=== PATIENT | female | born 1980 | race Caucasian/White ===

== ENCOUNTER 2022-08-15 10:11 | Outpatient (CLI) | payer OTHER, SELFPAY | END 2022-08-15 10:12 | disposition home or self-care (01) | PROVIDERS: PCP Physician Assistant Medical; Visit Provider Physician Assistant Medical | DX: I10 Essential (primary) hypertension (principal); N92.6 Irregular menstruation, unspecified; F41.9 Anxiety disorder, unspecified | CPT/HCPCS: 82088; 84244; 84443 ==

== ENCOUNTER 2022-09-27 13:16 | Outpatient (CLI) | payer OTHER, SELFPAY | END 2022-09-27 13:17 | disposition home or self-care (01) | PROVIDERS: PCP Physician Assistant Medical; Visit Provider Physician Assistant Medical | DX: Z00.00 Encounter for general adult medical examination without abnormal findings (principal); D64.9 Anemia, unspecified; I10 Essential (primary) hypertension; F41.9 Anxiety disorder, unspecified | CPT/HCPCS: 82607; 82746; 83516; 83540; 83550 ==

== ENCOUNTER 2022-10-09 16:47 | Outpatient (CLI) | payer OTHER, SELFPAY ==
--- NOTE | 2022-10-09 17:00 | CRLHL7_ITS ---
For Patients: As a result of the Century Cures Act, medical imaging exams and procedure reports are released immediately into your electronic medical record. You may view this report before your referring provider. If you have questions, please contact your health care provider. INDICATION: 42 year-old female. Menorrhagia. History of polyps. TECHNIQUE: Transabdominal and transvaginal pelvic ultrasound. FINDINGS: The uterus measures 7.8 x 3.8 x 4 cm. The endometrial stripe measures 8.4 mm transvaginally, normal in a premenopausal female. No free pelvic fluid. The right ovary measures 2.2 x 1.5 x 2 cm. The left ovary measures 3.5 x 2.0 x 2.5 cm. Blood flow is identified in the ovaries. Within the left ovary there is a complex presumed hemorrhagic cyst in evolution measuring 2.1 x 1.8 x 1.9 cm. Ultrasound followup recommended within 6-8 weeks or 1-2 menstrual cycles to assess for resolution. IMPRESSION: 1. Complex left ovarian cyst measuring up to 2.1 cm. Follow-up ultrasound recommended in 6-8 weeks or 1-2 menstrual cycles. 2. The examination is otherwise negative. Dictated by Vitaliy Leonard MD @ 10/09/2022 7:01:29 PM (Electronically Signed)
== END 2022-10-09 16:48 | disposition home or self-care (01) ==
LOC: US 16:47
PROVIDERS: PCP Physician Assistant Medical; Visit Provider Registered Nurse
DX: N92.0 Excessive and frequent menstruation with regular cycle (principal); N83.202 Unspecified ovarian cyst, left side
CPT/HCPCS: 76830; 76856

== ENCOUNTER 2022-12-13 13:52 | Outpatient (CLI) | payer OTHER, SELFPAY ==
--- NOTE | 2022-12-13 14:00 | CRLHL7_ITS ---
For Patients: As a result of the Century Cures Act, medical imaging exams and procedure reports are released immediately into your electronic medical record. You may view this report before your referring provider. If you have questions, please contact your health care provider. CLINICAL HISTORY: Follow-up left ovarian cyst Comparison 10/09/2022 TECHNIQUE: 2D ferrera scale and color Doppler images were acquired of the pelvis using a transvaginal approach. FINDINGS: On transvaginal imaging, the myometrium has a normal uniform echotexture. The endometrial lining measures 8 mm in thickness. The left ovary measures 2.6 x 1.1 x 1.6 cm in size and the right ovary measures 2.7 x 1.0 x 1.7 cm. The ovaries demonstrate normal arterial and venous blood flow on color Doppler analysis. There are no suspicious fluid collections within the cul-de-sac. IMPRESSION: Resolution of the previously noted left ovarian cyst. Dictated by Diego Sadler MD @ 12/13/2022 3:05:18 PM (Electronically Signed)
== END 2022-12-13 13:53 | disposition home or self-care (01) ==
LOC: US 13:52
PROVIDERS: PCP Physician Assistant Medical; Visit Provider Registered Nurse
DX: N83.202 Unspecified ovarian cyst, left side (principal)
CPT/HCPCS: 76830

== ENCOUNTER 2023-03-06 15:16 | Outpatient (CLI) | payer OTHER, SELFPAY ==
--- NOTE | 2023-03-06 15:00 | CRLHL7_ITS ---
For Patients: As a result of the Century Cures Act, medical imaging exams and procedure reports are released immediately into your electronic medical record. You may view this report before your referring provider. If you have questions, please contact your health care provider. BILATERAL SCREENING MAMMOGRAM WITH COMPUTER-AIDED DETECTION AND TOMOSYNTHESIS TECHNIQUE: CC and MLO views were obtained. These mammographic images have been obtained using full-field digital technique. These mammographic images were interpreted with the benefit of computer-aided detection. Breast Tomosynthesis was used in this interpretation. COMPARISON FILM: Baseline. FINDINGS: The breasts are heterogeneously dense, which may obscure small masses IMPRESSION: There is no radiographic evidence for malignancy. ASSESSMENT: BI-RADS Category 1: Negative RECOMMENDATION: Routine screening mammogram in 1 year. A lay language report of this examination will be provided to the patient. Diego Sadler M.D. Diagnostic Radiologist [email or web address] Transcribed: 2:14 [email or web address] madden/Dictated by: Diego Sadler MD @ 03/07/2023 8:00:00 AM (Electronically Signed)
== END 2023-03-06 15:17 | disposition home or self-care (01) ==
PROVIDERS: PCP Physician Assistant Medical; Visit Provider Physician Assistant Medical
DX: Z12.31 Encounter for screening mammogram for malignant neoplasm of breast (principal); R92.2 Inconclusive mammogram
CPT/HCPCS: 77063; 77067

== ENCOUNTER 2023-07-08 15:52 | Outpatient (CLI) | payer OTHER, SELFPAY | END 2023-07-08 15:53 | disposition home or self-care (01) | PROVIDERS: PCP Physician Assistant Medical; Visit Provider Physician Assistant Medical | DX: E61.1 Iron deficiency (principal); D64.9 Anemia, unspecified; I10 Essential (primary) hypertension; E53.8 Deficiency of other specified B group vitamins; F41.9 Anxiety disorder, unspecified | CPT/HCPCS: 82088; 82306; 82607; 83540; 83550; 84244; 84439; 84443; 86376 ==

== ENCOUNTER 2024-02-06 10:12 | Outpatient (CLI) | payer BC, SELFPAY | END 2024-02-06 10:13 | disposition home or self-care (01) | LOC: NFLDREF 02-07 08:40 | PROVIDERS: PCP Physician Assistant Medical; Referring Provider Physician Assistant Medical; Visit Provider Physician Assistant Medical | DX: E61.1 Iron deficiency (principal); E03.9 Hypothyroidism, unspecified; D64.9 Anemia, unspecified | CPT/HCPCS: 80053; 82607; 83540; 83550; 84443 ==

== ENCOUNTER 2024-02-13 17:03 | Outpatient (CLI) | payer BC, SELFPAY | END 2024-02-13 17:04 | disposition home or self-care (01) | LOC: LKVREF 17:04 | PROVIDERS: PCP Physician Assistant Medical; Visit Provider Emergency Medicine | DX: E83.19 Other disorders of iron metabolism (principal) | CPT/HCPCS: 82728 ==

== ENCOUNTER 2024-04-01 15:49 | Outpatient (CLI) | payer BC, SELFPAY | END 2024-04-01 15:50 | disposition home or self-care (01) | PROVIDERS: PCP Physician Assistant Medical; Visit Provider Emergency Medicine | DX: Z00.00 Encounter for general adult medical examination without abnormal findings (principal); E03.9 Hypothyroidism, unspecified; R74.01 Elevation of levels of liver transaminase levels; E61.1 Iron deficiency; E53.8 Deficiency of other specified B group vitamins; D64.9 Anemia, unspecified; I10 Essential (primary) hypertension | CPT/HCPCS: 80076; 82728; 83540; 83550 ==

== ENCOUNTER 2024-04-13 15:29 | Outpatient (CLI) | payer BC, SELFPAY ==
--- NOTE | 2024-04-13 15:45 | CRLHL7_ITS ---
For Patients: As a result of the Century Cures Act, medical imaging exams and procedure reports are released immediately into your electronic medical record. You may view this report before your referring provider. If you have questions, please contact your health care provider. CLINICAL HISTORY: Pelvic and perineal pain TECHNIQUE: 2D ferrera scale ultrasound. In addition color Doppler and spectral Doppler analysis was performed of the pelvis using a transvaginal and transabdominal approach. FINDINGS: On transvaginal imaging, the myometrium has a mildly heterogeneous echotexture. No uterine fibroid. The uterus measures 6.8 x 3.0 x 4.5 cm. The endometrial lining appears normal and measures 5 mm in thickness. The right ovary measures 2.9 x 1.8 x 2.2 cm in size and the right ovary measures 2.3 x 1.1 x 1.6 cm. The ovaries demonstrate normal arterial and venous blood flow on color Doppler and spectral Doppler analysis. There are no suspicious fluid collections within the cul-de-sac. Simple cyst right ovary measures 1.2 cm. IMPRESSION: Heterogeneous uterine echotexture without leiomyoma. Ovaries unremarkable with incidental simple cyst right ovary. No torsion or adnexal mass. No excess pelvic free fluid. Dictated by Diego Sadler MD @ 04/14/2024 10:00:03 AM (Electronically Signed)
== END 2024-04-13 15:30 | disposition home or self-care (01) ==
LOC: US 15:29
PROVIDERS: PCP Physician Assistant Medical; Visit Provider Emergency Medicine
DX: R10.2 Pelvic and perineal pain (principal); R93.89 Abnormal findings on diagnostic imaging of other specified body structures; N83.201 Unspecified ovarian cyst, right side
CPT/HCPCS: 76830; 76856; 93976

== ENCOUNTER 2024-04-14 09:17 | Outpatient (CLI) | payer BC, SELFPAY | END 2024-04-14 09:18 | disposition home or self-care (01) | LOC: LKVREF 09:18 | PROVIDERS: PCP Physician Assistant Medical; Visit Provider Emergency Medicine | DX: R74.01 Elevation of levels of liver transaminase levels (principal) | CPT/HCPCS: 80076 ==

== ENCOUNTER 2024-04-20 08:06 | Outpatient (CLI) | payer BC, SELFPAY ==
--- NOTE | 2024-04-20 08:15 | CRLHL7_ITS ---
For Patients: As a result of the Century Cures Act, medical imaging exams and procedure reports are released immediately into your electronic medical record. You may view this report before your referring provider. If you have questions, please contact your health care provider. INDICATION: Elevated liver transaminases levels. TECHNIQUE: Right upper quadrant ultrasound. COMPARISON: None. FINDINGS: Slight increased echotexture of the liver could reflect mild hepatic fatty infiltration. Please correlate clinically. No intrahepatic mass. No biliary ductal dilatation. Normal gallbladder without stones or sludge. No gallbladder wall thickening or pericholecystic fluid. No sonographic Parson`s sign. The gallbladder wall measures 1 mm and the common bile duct 3 mm. No hydronephrosis of the right kidney which measures 10.2 x 3.3 x 5.1 cm. The right renal cortex measures 1.3 cm. The proximal abdominal aorta is normal measuring 2.2 cm in AP dimension. The proximal IVC is grossly unremarkable. The pancreas is not well seen. IMPRESSION: 1. Normal gallbladder. 2. Normal-appearing right kidney. 3. Questionable mildly echogenic liver suggesting fatty infiltration. Dictated by Vitaliy Leonard MD @ 04/20/2024 11:26:54 AM (Electronically Signed)
== END 2024-04-20 08:07 | disposition home or self-care (01) ==
LOC: US 08:07
PROVIDERS: PCP Physician Assistant Medical; Visit Provider Emergency Medicine
DX: R74.01 Elevation of levels of liver transaminase levels (principal)
CPT/HCPCS: 76705

== ENCOUNTER 2024-04-24 16:24 | Outpatient (CLI) | payer BC, SELFPAY | END 2024-04-24 16:25 | disposition home or self-care (01) | LOC: NFLDREF 16:26 | PROVIDERS: PCP Physician Assistant Medical; Visit Provider Obstetrics & Gynecology | DX: N93.9 Abnormal uterine and vaginal bleeding, unspecified (principal); Z97.5 Presence of (intrauterine) contraceptive device | CPT/HCPCS: 80074; 85610; 85730 ==

== ENCOUNTER 2024-04-27 14:14 | Outpatient (CLI) | payer BC, SELFPAY ==
[2024-04-28 08:06] LABS: Lab Add On Test New Spec Needed
== END 2024-04-27 14:15 | disposition home or self-care (01) ==
LOC: NFLDREF 14:16
PROVIDERS: PCP Physician Assistant Medical; Visit Provider Emergency Medicine
DX: R74.01 Elevation of levels of liver transaminase levels (principal)
CPT/HCPCS: 80076

== ENCOUNTER 2024-06-22 12:50 | Outpatient (CLI) | payer BC, SELFPAY ==
--- NOTE | 2024-06-22 13:00 | CRLHL7_ITS ---
For Patients: As a result of the Century Cures Act, medical imaging exams and procedure reports are released immediately into your electronic medical record. You may view this report before your referring provider. If you have questions, please contact your health care provider. BILATERAL SCREENING MAMMOGRAM WITH COMPUTER-AIDED DETECTION AND TOMOSYNTHESIS TECHNIQUE: CC and MLO views were obtained. These mammographic images have been obtained using full-field digital technique. These mammographic images were interpreted with the benefit of computer-aided detection. Breast Tomosynthesis was used in this interpretation. COMPARISON FILM: 03/06/23. FINDINGS: The breasts are heterogeneously dense, which may obscure small masses. IMPRESSION: There is no radiographic evidence for malignancy. ASSESSMENT: BI-RADS Category 1: Negative RECOMMENDATION: Routine screening mammogram in 1 year. A lay language report of this examination will be provided to the patient. Diego Sadler M.D. Diagnostic Radiologist [email or web address] SP/Dictated by: Diego Sadler MD @ 06/23/2024 9:21:00 AM (Electronically Signed)
== END 2024-06-22 12:51 | disposition home or self-care (01) ==
LOC: MAMMO 12:51
PROVIDERS: PCP Physician Assistant Medical; Visit Provider Emergency Medicine
DX: Z12.31 Encounter for screening mammogram for malignant neoplasm of breast (principal); R92.333 Mammographic heterogeneous density, bilateral breasts
CPT/HCPCS: 77063; 77067

== ENCOUNTER 2024-07-08 13:17 | Outpatient (CLI) | payer BC, SELFPAY | END 2024-07-08 13:18 | disposition home or self-care (01) | PROVIDERS: PCP Physician Assistant Medical; Visit Provider Physician Assistant Medical | DX: R74.01 Elevation of levels of liver transaminase levels (principal); R60.9 Edema, unspecified; D64.9 Anemia, unspecified; F10.90 Alcohol use, unspecified, uncomplicated; F41.9 Anxiety disorder, unspecified; I10 Essential (primary) hypertension | CPT/HCPCS: 80053; 82977; 83690; 83880 ==

== ENCOUNTER 2024-07-08 14:58 | Emergency (ER) | payer BC, SELFPAY ==
[2024-07-08] VITALS (34 sets, daily range): BP systolic 115–146; BP diastolic 58–86; PULSE 86–120; RESP 18; TEMP 37.2; O2SAT 94–100; BMI 22.7
--- OUTSIDE RECORDS SUMMARY | 2024-07-08 15:01 | XMS_ITS | Clinical Summary ---
Author Organization [facility] Address [place], [place] [address] Care Team Providers Care Engine Oiler Name Role Phone Mayi Dickson MD Primary Care Provider [phone] Allergies Active Allergy Reactions Criticality Noted Date Comments Amoxicillin Rash 05/08/2016 Sulfa (Sulfonamide Antibiotics) Rash 04/18 Encounters Date Type Department Care Team Description 04/27/2024 Lab Requisition [facility] [phone] Rosaura Guevara MD from Last 3 Months Social History Tobacco Use Types Packs/Day Years Used Date Smoking Tobacco: Never Alcohol Use Standard Drinks/Week Comments Yes 2 (1 standard drink = 0.6 oz pur e alcohol) Comments No Sex and Gender Information Value Date Recorded Sex Assigned at Not on file Legal Sex Female 5:25 PM CDT Gender Identity Not on file Sexual Orientation Not on file Obstetrics History Last Filed Vital Signs Vital Sign Reading Time Taken Comments Blood Pressure 151/93 05/08/2016 1:16 PM RESTORATIVE REHAB AIDE Pulse 62 05/08/2016 1:17 PM RESTORATIVE REHAB AIDE Temperature 36.4 C (97.6 F) 05/08/2016 11:00 AM RESTORATIVE REHAB AIDE Respiratory Rate 16 05/08/2016 1:17 PM RESTORATIVE REHAB AIDE Oxygen Saturation 98% 05/08/2016 1:17 PM RESTORATIVE REHAB AIDE Inhaled Oxygen Concentration - - Weight 65.8 kg (145 lb) 05/08/2016 11:00 AM RESTORATIVE REHAB AIDE Height 167.6 cm (5' 6) 05/08/2016 11:00 AM RESTORATIVE REHAB AIDE Body Mass Index 23.4 05/08/2016 11:00 AM RESTORATIVE REHAB AIDE Plan of Treatment Health Maintenance Due Date Last Done Comments Tdap 1992 Depression screening for age 12+ 1993 HIV for age 15-65 1996 BMI (ht and wt on same day) for age 18+ 09/13/1999 Hepatitis C screening for age 18-79 09/13/1999 Tetanus booster 2001 COVID-19 vaccine series ( season) 2024 Influenza for age 9-49 02/16/2024 Pap test for age 21-65 09/27/2025 , 09/27/2022, 02/04/2015, Additional history exists Pneumococcal series for age 6-49 Aged Out No longer eligible based on patient's age to complete this topic Procedures Procedure Name Priority Date/Time Associated Diagnosis Comments LAB TRACKING EVENT Routine 04/24/2024 4: 10 PM RESTORATIVE REHAB AIDE PATH TISSUE EXAM Routine 04/24/2024 4:10 PM RESTORATIVE REHAB AIDE HPV HIGH RISK Routine 09/27/2022 1:45 PM CDT from Last 3 Months or Most Recently Relevant to Health Maintenance Results * LAB TRACKING EVENT (04/24/2024 4:10 PM RESTORATIVE REHAB AIDE) Other (Other) Client Collect / Unknown 04/24/2024 4:10 PM RESTORATIVE REHAB AIDE 04/27/2024 1:47 PM RESTORATIVE REHAB AIDE us Rosaura Guevara MD LAB BILL ONLY Final Re sult [facility] [address] [place] [address], * PATH TISSUE EXAM (04/24/2024 4:10 PM RESTORATIVE REHAB AIDE) Case Report Pathology Report Case: [id number] Authorizing Provider: Rosaura Guevara MD Collected: 04/24/2024 1610 Ordering Location: [facility] Received: 04/27/2024 1504 Pathologist: Carleen Nickerson MD Specimen: Endometrial Biopsy 04/29/2024 10:52 AM RESTORATIVE REHAB AIDE [facility] Final Diagnosis A) ENDOMETRIUM, BIOPSY: 1. Proliferative endometrium 2. Negative for chronic endometritis 3. Negative for hyperplasia, atypia, and malignancy 04/29/2024 10:52 AM RESTORATIVE REHAB AIDE [facility] Clinical Information 43-year-old female with abnormal uterine bleeding. 04/29/2024 10:52 AM RESTORATIVE REHAB AIDE [facility] Gross Description A) Received in formalin, labeled with the patient's name and date of , is a 2.3 x 1.5 x 0.4 cm aggregate of pink-varela mucosa admixed with clotted blood and mucous. The specimen is entirely submitted in one cassette. SJM 04/27/2024 04/29/2024 10:52 AM RESTORATIVE REHAB AIDE [facility] Microscopic Description The final diagnosis is based on microscopic examination of appropriate sections of all specimens. 04/29/2024 10:52 AM RESTORATIVE REHAB AIDE [facility] Additional Information Interpreted at [facility] - [address] [place] [address] [address] [address] 04/29/2024 10:52 AM RESTORATIVE REHAB AIDE [facility] Other (Endometrial Biopsy) 04/24/2024 4:10 PM RESTORATIVE REHAB AIDE 04/27/2024 3:04 PM RESTORATIVE REHAB AIDE Rosaura Guevara MD PATHOLOGY/CYTOLOGY Final Result [facility] [address] [place] [address], * HPV HIGH RISK (09/27/2022 1:45 PM CDT) TYPE 16 Negative Negative 10/03/2022 5:24 AM CDT [facility] TYPE 18 Negative Negative 10/03/2022 5:24 AM CDT [facility] OTHER HIGH RISK TYPES Negative Negative 10/03/2022 5:24 AM CDT [facility] Other (Cervical) 09/27/2022 1:45 PM CDT 10/01/2022 3:37 PM CDT Narrative [facility] - 10/03/2022 5:24 AM CDT HPV types 16, 18, 31, 33, 35, 39, 45, 51, 52, 56, 58, 59, 66 and 68 DNA were undetectable or below the pre-set threshold. Methodology: Ashwin Dwain 4800 HPV Test us Vanessa Foster PA-C MICROBIOLOGY Final Result [facility] [address] [place] [address], [place] from Last 3 Months or Most Recently Relevant to Health Maintenance Care Teams Engine Oiler Relationship Specialty Start Date End Date Randolph, Mayi Muñoz MD [address] [place] [id number] PCP - General Obstetrics and Gynecology 05/08/16
--- OUTSIDE RECORDS SUMMARY | 2024-07-08 15:01 | XMS_ITS | Referral Summary ---
Author Organization [facility] [facility] Address [address] [place] [address] Care Team Providers Care Gate Guard Name Role Phone [facility]- Primary Care Provider Allergies Active Allergy Reactions Criticality Noted Date Comments Amoxicillin 07/19/2019 Sulfa Antibiotics 07/19/2019 Social History Tobacco Use Types Packs/Day Years Used Date Smoking Tobacco: Never Assessed Adolescent Education Answer Date Record ed Getting School Help Needed Not on file 03/23 Comments Unknown Sex and Gender Information Value Date Recorded Sex Assigned at Not on file Legal Sex Female 3:04 AM TOMATO GRADER Gender Identity Not on file Sexual Orientation Not on file Last Filed Vital Signs Vital Sign Reading Time Taken Comments Blood Pressure 153/110 07/19/2019 11:38 AM TOMATO GRADER Pulse 116 07/19/2019 11:38 AM TOMATO GRADER Temperature 36.9 C (98.4 F) 07/19/2019 11:38 AM TOMATO GRADER Respiratory Rate 18 07/19/2019 11:38 AM TOMATO GRADER Oxygen Saturation 100% 07/19/2019 11:38 AM TOMATO GRADER Inhaled Oxygen Concentration - - Weight 63.7 kg (140 lb 6.9 oz) 07/19/2019 11:41 AM TOMATO GRADER Height 165.1 cm (5' 5) 07/19/2019 11:38 AM TOMATO GRADER Body Mass Index 23.37 07/19/2019 11:38 AM TOMATO GRADER Plan of Treatment Not on file Care Teams Gate Guard Relationship Specialty Start Date End Date [facility]- [address] [place] [address] [facility] - General 07/19/19
--- OUTSIDE RECORDS SUMMARY | 2024-07-08 15:01 | XMS_ITS | Clinical Summary ---
Author Organization [facility] Address [address] [place] [address] Care Team Providers Care Machine Operator Picker Name Role Phone [facility]- Primary Care Provider Allergies Active Allergy Reactions Criticality Noted Date Comments Amoxicillin 07/19/2019 Sulfa Antibiotics 07/19/2019 Social History Tobacco Use Types Packs/Day Years Used Date Smoking Tobacco: Never Assessed Adolescent Education Answer Date Record ed Getting School Help Needed Not on file 03/23 Comments Unknown Sex and Gender Information Value Date Recorded Sex Assigned at Not on file Legal Sex Female 3:04 AM PAD CUTTER Gender Identity Not on file Sexual Orientation Not on file Last Filed Vital Signs Vital Sign Reading Time Taken Comments Blood Pressure 153/110 07/19/2019 11:38 AM PAD CUTTER Pulse 116 07/19/2019 11:38 AM PAD CUTTER Temperature 36.9 C (98.4 F) 07/19/2019 11:38 AM PAD CUTTER Respiratory Rate 18 07/19/2019 11:38 AM PAD CUTTER Oxygen Saturation 100% 07/19/2019 11:38 AM PAD CUTTER Inhaled Oxygen Concentration - - Weight 63.7 kg (140 lb 6.9 oz) 07/19/2019 11:41 AM PAD CUTTER Height 165.1 cm (5' 5) 07/19/2019 11:38 AM PAD CUTTER Body Mass Index 23.37 07/19/2019 11:38 AM PAD CUTTER Plan of Treatment Not on file Care Teams Machine Operator Picker Relationship Specialty Start Date End Date [facility]- [address] [place] [address] [facility] - General 07/19/19
--- NOTE | 2024-07-08 15:28 | ED.GENADULT ---
HPI - General Adult General Time Seen by Provider: 15:15 Date Seen: 07/08/24 Chief complaint: Lower Extremity Swelling Stated complaint: Sent y UC-bloodwork needed Time Seen by Provider: 07/08/24 15:02 Source: patient, RN notes reviewed and other (spoke with Vanessa Foster from clinic) Mode of arrival: ambulatory Limitations: no limitations History of Present Illness HPI narrative: This 43-year-old female is referred to us from [facility] where she was seeing Vanessa Genijacintoalda for reported edema. She had been seen on Saturday for upper respiratory infection. Vanessa thought maybe her eyes looked a little jaundice and made a mental note to talk to her in the future about it. Patient came back today and definitely appreciated the jaundice. Lab told her that her serum spun out green and that she could be septic and needed further evaluation. Her platelets were good at 208,000. Hemoglobin was at 9.8. Patient is having no abdominal pain but does feel bloated. She drinks maybe a couple beers or couple glasses of wine tonight and maybe more on weekends. She is noted to have had normal coags, normal hepatitis panel in April of 2024. Her white blood count was normal at clinic today at 5140. Her hemoglobin on May 11 was 12.7. She does endorse anxiety, does use some Ativan, took 0.5 mg this morning. She has tried other medicines, has been working on her anxiety and really has not found a lot to be helpful. She has no chest pain, no shortness of breath, no respiratory symptoms. Related Data Home Medications ?Medication ?Instructions ?Recorded ?Confirmed Fish oil PO 07/09/22 07/08/24 Multivitamins PO 07/09/22 07/08/24 acyclovir 5 % topical ointment 1 topical .5 Times Daily 07/09/22 07/08/24 Previous Rx's ?Medication ?Instructions ?Recorded ketoconazole 2 % topical cream 1 applic topical BID #60 grams 04/08/23 losartan 25 mg tablet 25 mg PO QDAY #90 tabs 04/09/24 norethindrone (contraceptive) 0.35 0.35 mg PO QDAY #84 tabs 05/06/24 mg tablet (Jessy) cholecalciferol (vitamin D3) 50 50 mcg PO QDAY #90 caps 05/11/24 mcg (2,000 unit) capsule lorazepam 0.5 mg tablet 0.5 mg PO QDAY PRN anxiety #30 tabs 07/10/24 Allergies Allergy/AdvReac Type Severity Reaction Status Date / Time penicillin V Allergy Mild Rash Verified 07/08/24 15:12 amoxicillin Allergy Unknown Unknown Verified 07/08/24 15:12 sulfacetamide Allergy Eye drops Verified 07/08/24 15:12 as child. Eyes became swollen shut. Review of Systems Status of ROS: Reports: 6 or more systems reviewed and unremarkable except as noted in History and below PFSH [facility] Medical History Pelvic pain ?R10.2 - Pelvic and perineal pain (ICD-10) Iron overload ?E83.19 - Other disorders of iron metabolism (ICD-10) Anxiety and depression ?F41.9 - Anxiety disorder, unspecified (ICD-10) ?F32.A - Depression, unspecified (ICD-10) Elevated transaminase level ?R74.01 - Elevation of levels of liver transaminase levels (ICD-10) Gestational HTN ?O13.9 - Gestational [-induced] hypertension without significant proteinuria, unspecified trimester (ICD-10) 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) ?Z86.19 - Personal history of other infectious and parasitic diseases (ICD-10) Delivery normal (10/08/12) ?O80 - Encounter for full-term uncomplicated delivery (ICD-10) Anxiety disorder ?F41.9 - Anxiety disorder, unspecified (ICD-10) Surgical History History of vaginal delivery Status post surgical manipulation of ankle joint ?Z98.890 - Other specified postprocedural states (ICD-10) History of colposcopy ?Z98.890 - Other specified postprocedural states (ICD-10) Family History Paternal Grandmother Breast cancer, Onset Age: 60 Aunt Breast cancer Family/Other Cancer Mother High blood pressure Father High blood pressure Social History Narrative: . ( 3 sons- 11 yo, 10 yo, 7 yo ) Does not use illicit drugs Nonsmoker Occasional alcohol consumption Smoking Status: Never smoker How often do you have a drink containing alcohol: 4 or more times a week How many standard drinks containing alcohol do you have on a typical day: 10 or more How often do you have six or more drinks on one occasion: Weekly AUDIT-C Alcohol total score: 11 Non-prescribed substance use: denies use service: No Exam Const: Vital Signs, click to edit/add: Vital Signs - 24 hr 07/10/24 10:27 07/10/24 13:12 Pulse Rate [Right Pulse Oximeter] 88 105 H Respiratory Rate 16 20 Blood Pressure [Ri ght Upper Arm] 133/86 129/87 Pulse Oximetry 99 97 Oxygen Delivery Me thod Room Air Room Air Gilda is a 43-year-old female initially seen in triage, she is alert, interactive, no apparent distress. Breathing easy on room air cause pH is normal. Definite scleral icterus but conjugate gaze, pupils equal and round. Symmetrical facial function, skin does look jaundice. Note no vascular changes on her face. Lungs are clear, good air entry, no wheezing crackles, no tachypnea. CV regular rate and rhythm, no murmur, normal S1-S2, no S3-S4. She is sitting in the chair but abdomen is soft, nontender, do not appreciate any significant distension but admittedly this is not best positioning. She has no significant lower extremity edema that I am seen but she does pull down her sock and shows some bruising along the anterolateral aspect of the ankle, seems to just be within the skin. She states she has been getting bruising. There may be trace pretibial edema but nothing concerning. Documenting provider has reviewed patient's vital signs: yes Course Course ED Course: Patient understands that we will be drawing blood in triage, I will be ordering an abdominal ultrasound to see if she has had any progression of liver disease, see if there is ascites. I doubt that there is any infectious etiology at this time, she has no pain, no fevers, hemodynamically stable. Her white blood count was normal in clinic today. We will see with the imaging shows and her labs, guide therapy accordingly. She does want to know if she will be able to go home, at this point I think it is largely very likely she will. Reevaluation(s) Time of Reevaluation #1: 16:56 Reevaluation #1: Patient is back in room 5 now. Have reviewed her liver enzymes being significantly elevated with her. Her alkaline phosphatase, bilirubin have been normal in the past. Her AST and ALT of certainly not been this high. She did get the abdominal ultrasound before I saw the results of her liver function panel. I do think we need to proceed with CT imaging of her abdomen pelvis as well given these liver enzymes. I do wonder if perhaps she has alcoholic liver disease on top of something else. She did have a normal acute hepatitis panel in April of 2024. She does not use any needles, no concerning sexual habits with any other partners, no travel. She is getting quite anxious. She did take 0.5 mg oral Ativan this morning, will give her another dose here now. Time of Reevaluation #2: 19:44 Reevaluation #2: Have reviewed with patient her results. Did provider copy of the CT report. I had briefly reviewed her case with our surgeon, agrees with me that there is no concern for gallbladder issues here. I did re-evaluate patient's abdomen, she is not tender, states she is not been having any abdominal pain. Patient and I reviewed that her issues are likely from liver disease, certainly alcohol is contributing. I have reviewed with her that she absolutely needs to refrain from alcohol. She stated she was going to need something to sleep, something to take her anxiety away. Reviewed with her that benzodiazepines are not necessarily recommended in liver disease, do not know where she is at with her liver disease and thus would not recommend them for her. She became a bit distraught stating that she was going to go home and she did have anything to relax her. Was lesvia with patient that anxiety in of itself does not kill people but liver disease certainly will. I stressed to her the importance of facing the seriousness of her labs and the liver disease she is facing. I have a call into GI due to the elevation of her bilirubin and have not heard back. She is not having any abdominal pain, no fevers, has no encephalopathic features. We did review her ammonia is elevated. It is imperative that she not drink. She does not need hospitalization at this time but will need follow-up with GI. She has decided to go home, I can call her later if I do hear from GI and if they have any other recommendations. Otherwise, I can pass these on to Vanessa for her to initiate. Serum a half to get her into GI. Patient wanted to know the time frame and I reviewed with her that I have no idea. Unfortunately, do worry that it may take a while given the constraints in medicine at this time. Time of Reevaluation #3: 20:12 Reevaluation #3: Upon further discussion with Gilda, was talking to her about speaking with the insurance attorney in he had recommended going into the hospital, recommended inpatient evaluation. She stated she did not understand and that this was all confusing to her. At this point, became concerned that she is exhibiting some encephalopathy. We did call her on the phone, reviewed the situation. She admitted that she is worried to tell people, does not want them to think she is alcoholic. I reviewed with her that we do not know that alcohol is the sole responsible etiology here. As we reviewed before, alcohol may have unmasked other underlying liver pathology. This is why she needs further evaluation, as the GI doctor reviewed, if she had progressed from normal liver functions essentially in April to this abnormality now, he would recommend inpatient evaluation and treatment. I do think at this time I am starting to see some encephalopathy. Did discuss with her and her that would consider starting some lactulose to help diminish this. We also did review that there is limitations on bed availability. I do note that there are no beds at [place] from a recent transfer. She is wait listed with [facility] system in can go to [facility] or [facility] where they have GI. Will have staff call other health systems in the [facility] to see if there is any capacity. Additional Reevaluation(s): 9:36 p.m.: Have talked to patient, her is now here to. Answered questions surrounding transfer. They understand that we just have to wait, have no idea. Nursing staff is looking at other organizations as well to see if there is capacity. Nursing staff has contacted [facility], no bed availability, same for [facility]. No bed availability at [facility], [place]. Consultations Consultation #1: This patient's history is reviewed with insurance attorney Dr. Basurto at [place]. He does recommend with her history and near normal liver functions in April that she transfer to inpatient evaluation. He stated if they were seen someone in clinic like this that they would put her in the hospital. They do not have any beds within their system where there is GI at this time. She will be wait listed. I will update her on this. Time: 19:53 Consultation #2: Have contacted [facility] and spoke Dr. Crowell. He still believes that the patient needs to inpatient for work up. There will be no safe expeditious way to facilitate this outpatient. Did see patient after I talked to AMILCAR this afternoon. She is up working on her computer. I do find her to be alert and conversive, seems to be tracking much better than last night. Reviewed with her that she likely was more affected by the ammonia and was encephalopathic than I originally had thought on 1st seen her. She states she feels clear, does feel better. We probably can move her lactulose to once daily as the ammonia came down quite nicely. There are no new concerns. Her labs have not worsened. We discussed expectations for transfer, we will continue to try to call all facilities. She is weight listed at [facility] at this time. Staff has been calling multiple times a day to facilities. Time: 16:16 Consultation #3: Have spent 38 minutes on the phone discussing with the hospitalist taking transfers at the you Dr. Swanson. He did conference in transplant liver specialist Dr. Cody whom states that he does not feel she is in need of any urgent transplant evaluation. He does believe that alcohol is contributing but that there is indeed likely some underlying other etiology. He does feel that she could be admitted to any GI team for further evaluation and management of this. Dr. Swanson accepts her to [facility] where she will have GI evaluation but there is a bed weight. We will have to wait for discharges. She is still listed on the wait list at [place] at this time. Will update patient. We will except whichever bed she receives 1st. Patient is updated on the events that she is accepted at [facility] but there is a bed delay until they have discharges. She is 1st on the wait list at [place]. We will except whichever place takes her 1st. We reviewed the discussion with the sales development associate. She shows no signs of encephalopathy today, we did review that her outcome phosphatase and bilirubin are increasing but the AST and ALT are improving. Certainly alcohol has contributed but Dr. Cody has largely confirmed suspicion that there is an underlying process with this. Patient is stable, no change in clinical exam. She is very willing to stay here until she can get transferred to see GI. Time: 11:06 Vital Signs Vital signs: Initial Vital Signs Temperature 98.9 F 07/08/24 15:03 Temperature Source Temporal Artery Scan 07/08/24 15:03 Pulse Rate 108 H 07/08/24 15:03 Pulse Rhythm Regular 07/08/24 15:03 Pulse Strength 3+ Normal 07/08/24 15:03 Respiratory Rate 18 07/08/24 15:03 Blood Pressure 146/63 H 07/08/24 15:03 Blood Pressure Mean 90 07/08/24 15:03 Blood Pressure Position Sitting 07/08/24 15:03 Pulse Oximetry 100 07/08/24 15:03 Oxygen Delivery Method Room Air 07/08/24 15:03 Vital Signs Temperature 98.9 F 07/08/24 15:03 Pulse Rate 108 H 07/08/24 15:03 Respiratory Rate 18 07/08/24 15:03 Blood Pressure 146/63 H 07/08/24 15:03 Pulse Oximetry 100 07/08/24 15:03 Oxygen Delivery Method Room Air 07/08/24 15:03 Temperature 98.9 F 07/08/24 15:03 Pulse Rate 105 H 07/10/24 13:12 Respiratory Rate 20 07/10/24 13:12 Blood Pressure 129/87 07/10/24 13:12 Pulse Oximetry 97 07/10/24 13:12 Oxygen Delivery Method Room Air 07/10/24 13:12 Medications Administered Medications: Discontinued Medications Generic Name Dose Route Start Last Admin Trade Name Yadira PRN Reason Stop Dose Admin Acetaminophen 500 mg 07/08/24 21:42 07/08/24 21:44 Acetaminophen 500 Mg Tablet PO 07/08/24 21:43 500 mg ONCE ONE Administration Acetaminophen 650 mg 07/09/24 09:37 07/09/24 12:12 Acetaminophen 325 Mg Tablet PO 07/09/24 09:38 650 mg ONCE ONE Administration Acetaminophen 650 mg 07/09/24 21:31 07/09/24 21:40 Acetaminophen 325 Mg Tablet PO 07/09/24 21:32 650 mg ONCE ONE Administration Lactulose 20 gm 07/08/24 21:00 07/10/24 11:08 Lactulose 20 Gm/30 Ml PO 20 gm BID CHASE Administration Lorazepam 0.5 mg 07/08/24 16:59 07/08/24 17:05 Lorazepam 0.5 Mg Tablet PO 07/08/24 17:00 0.5 mg ONCE ONE Administration Lorazepam 0.5 mg 07/08/24 21:17 07/10/24 11:35 Lorazepam 0.5 Mg Tablet PO 0.5 mg Q4H PRN Administration ETOH withdrawal Ondansetron HCl 4 mg 07/08/24 21:21 07/08/24 21:25 Ondansetron 2 Mg/Ml Inj IVP 07/08/24 21:22 4 mg ONCE ONE Administration Medical Decision Making Lab Data Lab results reviewed: Yes I reviewed the patient's lab results Lab results narrative: Today in clinic her white blood count was 5140, hemoglobin 9.3, platelet count [id number]. Her MCV was 98. She had a normal TSH in January of 2024, has a history of an elevated TPO antibody at 193.2 in June of 2023. GGT from lab earlier today was greater than 2800. Of note, bilirubin was normal, AST was 67 and ALT was 49 on 04/27/2024. In March of 2024, on the her AST was 118, ALT 78, on April 14, AST was 285 an ALT 152. Her alkaline phosphatase has been normal as has bilirubin prior to this. Patient had a normal iron level on 04/01/2024 at 162. Labs: Lab Results 07/08/24 07/08/24 07/09/24 Range/Units 15:25 20:36 08:22 WBC 3.68 L (4.50-11.00) K/uL RBC 2.78 L (4.00-5.20) m/uL Hgb 8.8 L (12.0-16.0) gm/dL Hct 27.2 L (33.0-51.0) % MCV 98 (80-100) fL MCH 32 (26-34) pg MCHC 32 (32-36) gm/dL RDW Coeff of Melinda 17.0 H (11.5-15.5) % Plt Count 179 (140-440) K/uL Neut % (Auto) 59.5 (42.0-72.0) % Lymph % (Auto) 26.9 (20-44) % Wise % (Auto) 12.2 H (0.0-11.0) % Eos % (Auto) 0.8 (0.0-7.0) % Baso % (Auto) 0.3 (0.0-3.0) % Neut # (Auto) 2.20 (1.7-7.0) K/uL Lymph # (Auto) 1.00 (0.90-2.90) K/uL Wise # (Auto) 0.40 (0.00-0.90) K/UL Eos # (Auto) 0.00 (0.00-0.50) K/uL Baso # (Auto) 0.00 (0.00-0.30) K/uL Abs Immat Gran (auto) 0.00 (0.00-0.30) K/uL Imm/Tot Granulo (auto) 0.3 % INR 1.00 (0.91-1.10) APTT 31 (23-33) Seconds Sodium 133 L 135 (135-149) mmol/L Potassium 4.0 3.7 (3.6-5.1) mmol/L Chloride 101 105 (96-114) mmol/L Carbon Dioxide 17 L 25 (20-32) mmol/L Anion Gap 15 5 L (7-15) mEq/L BUN 9 7 (5-24) mg/dL Creatinine 0.7 0.8 (0.5-1.5) mg/dL Estimated Creat Clear 90.41 79.11 Estimated GFR 111 94 ml/min Glucose 85 81 (60-115) mg/dL Calcium 9.0 8.4 (8.4-10.6) mg/dL Magnesium 1.6 (1.5-2.6) mg/dL Total Bilirubin 9.3 H 9.3 H (0.1-1.5) mg/dL Direct Bilirubin 8.2 H (0.0-0.5) mg/dL AST 678 H 562 H (12-35) U/L ALT 243 H 202 H (4-35) U/L Alkaline Phosphatase 825 H 646 H (40-150) U/L Ammonia 77.6 H 33.2 H (13.1-30.0) umol/L Total Protein 7.1 6.0 (6.0-8.3) g/dL Albumin 3.3 2.7 L (3.3-5.0) g/dL Lipase 336 H 304 H (23-300) U/L Ethyl Alcohol < 0.01 L (0.01-0.03) % Lab Acknowledgement Test Added 07/10/24 Range/Units 08:23 WBC 4.26 L (4.50-11.00) K/uL RBC 2.89 L (4.00-5.20) m/uL Hgb 9.2 L (12.0-16.0) gm/dL Hct 28.8 L (33.0-51.0) % MCV 100 (80-100) fL MCH 32 (26-34) pg MCHC 32 (32-36) gm/dL RDW Coeff of Melinda 17.7 H (11.5-15.5) % Plt Count 179 (140-440) K/uL Neut % (Auto) 68.1 (42.0-72.0) % Lymph % (Auto) 20.9 (20-44) % Wise % (Auto) 9.4 (0.0-11.0) % Eos % (Auto) 0.9 (0.0-7.0) % Baso % (Auto) 0.2 (0.0-3.0) % Neut # (Auto) 2.90 (1.7-7.0) K/uL Lymph # (Auto) 0.90 (0.90-2.90) K/uL Wise # (Auto) 0.40 (0.00-0.90) K/UL Eos # (Auto) 0.00 (0.00-0.50) K/uL Baso # (Auto) 0.00 (0.00-0.30) K/uL Abs Immat Gran (auto) 0.00 (0.00-0.30) K/uL Imm/Tot Granulo (auto) 0.5 % INR (0.91-1.10) APTT (23-33) Seconds Sodium 136 (135-149) mmol/L Potassium 3.6 (3.6-5.1) mmol/L Chloride 104 (96-114) mmol/L Carbon Dioxide 27 (20-32) mmol/L Anion Gap 5 L (7-15) mEq/L BUN 5 (5-24) mg/dL Creatinine 0.8 (0.5-1.5) mg/dL Estimated Creat Clear 79.11 Estimated GFR 94 ml/min Glucose 87 (60-115) mg/dL Calcium 8.6 (8.4-10.6) mg/dL Magnesium (1.5-2.6) mg/dL Total Bilirubin 10.0 H (0.1-1.5) mg/dL Direct Bilirubin 8.8 H (0.0-0.5) mg/dL AST 533 H (12-35) U/L ALT 205 H (4-35) U/L Alkaline Phosphatase 741 H (40-150) U/L Ammonia 29.9 (13.1-30.0) umol/L Total Protein 6.4 (6.0-8.3) g/dL Albumin 2.9 L (3.3-5.0) g/dL Lipase (23-300) U/L Ethyl Alcohol (0.01-0.03) % Lab Acknowledgement Imaging Data US - abdomen: Attestation: I have reviewed the pertinent imaging results. Radiologist's impression: Patient: GILDA GUNDERSON Facility:?[facility] Patient ID:?[id number] Site Patient ID:?[id number]. Site :?1980 Study:?US-Abdomen complete-07/08/2024 4:52:55 PM Ordering Physician:Otilia Cheney Final Report: INDICATION: Abdominal pain. TECHNIQUE: Ultrasound abdomen complete. Sonographic images of the entire abdomen were obtained using ferrera-scale and color Doppler. COMPARISON: None. FINDINGS: Liver: Coarsened echogenic liver with surface nodularity.. No suspicious masses. No intrahepatic biliary dilatation. Gallbladder: Gallbladder is collapsed. No gallstones identified. Thickened slightly irregular contours of the gallbladder wall measuring up to 6 millimeters. no pericholecystic fluid. Reported positive sonographic Parson`s sign. Common bile duct: 5 mm. Pancreas: Partially visualized, unremarkable. Spleen: Borderline enlarged measuring 9.7 centimeters. Probable splenule adjacent to the spleen. Kidneys: Both kidneys are normal in size. Normal echotexture and cortex. No suspicious masses, stones, or hydronephrosis. Vasculature: Proximal abdominal aorta and IVC are normal in caliber. Main portal vein is unremarkable. IMPRESSION: 1. Coarsened echogenic liver with suspected surface nodularity. Findings are concerning for chronic liver disease. Cirrhosis is also a possibility. Correlate with clinical and laboratory findings. Consider further evaluation with nonemergent CT of the abdomen. 2. A slightly irregular thickened gallbladder wall. Part of this is likely related to the gallbladder being collapsed. Positive sonographic Parson`s sign is reported however there is no pericholecystic fluid. Findings can be seen in the setting of acalculous cholecystitis in the correct clinical setting. Dictated by Sahra Alcazar MD @ 07/08/2024 5:26:10 PM (Electronic Signature) CT scan - abdomen: Attestation: I have reviewed the pertinent imaging results. Radiologist's impression: Patient: GILDA GUNDERSON Facility:?[facility] Patient ID:?[id number] Site Patient ID:?[id number]. Site :?1980 Study:?CT-Abdomen/Pelvis W/ ISOVUE 370-07/08/2024 5:39:25 PM Ordering Physician:Otilia Cheney Final Report: INDICATION: Elevated bilirubin and liver function tests. Mildly elevated lipase. COMPARISON: Same day abdominal ultrasound TECHNIQUE: CT of the abdomen and pelvis with intravenous contrast (65 milliliters Isovue 370). FINDINGS: Lung bases: No pleural effusion. There are a few bibasilar pulmonary nodules largest of which is a solid 4 millimeter right lower lobe nodule on series 3, image 17. Liver: Low-attenuation of the liver compatible with hepatic steatosis. Mildly enlarged liver. No definite hepatic surface nodularity. No suspicious hepatic lesion is identified. Gallbladder and biliary tree: The gallbladder is decompressed. The gallbladder wall is diffusely thickened measuring up to 5 millimeters. No pericholecystic edema. Spleen: There are several punctate calcified granulomata scattered throughout the spleen. No splenomegaly. Pancreas: Normal. Adrenal glands: Normal. Kidneys and ureters: No hydroureteronephrosis. No suspicious renal lesions are identified. Bladder: Unremarkable CT appearance. Visualized reproductive organs: Fluid attenuation 21 millimeter right adnexal cyst/follicle. There is a tampon which has been placed in a horizontal orientation within the vaginal canal. Gastrointestinal tract: No focal abnormally dilated loops of bowel. There is prominent submucosal fatty deposition in the large bowel from the cecum to the splenic flexure. There is also mild submucosal fatty deposition in the terminal ileum and multiple other loops of predominantly right lower quadrant small bowel. Normal appendix. Peritoneal cavity: Trace pelvic free fluid. Lymph nodes: No enlarged abdominal or pelvic lymph nodes by CT size criteria. Vessels: No abdominal aortic aneurysm. Abdominal and pelvic wall: Normal. Bones: There are osseous degenerative changes. IMPRESSION: 1. Hepatic steatosis. Mild hepatomegaly. 2. The gallbladder wall is diffusely thickened, probably due to decompression. There is no pericholecystic edema. 3. Prominent submucosal fatty deposition in the large bowel and, to a lesser extent, the small bowel as described above. This finding can sometimes represent sequela of prior inflammation, but can also be seen as a normal variant. 4. Few bibasilar pulmonary nodules, the largest of which is a solid 4 millimeter right lower lobe nodule. No further imaging follow-up is recommended for incidental nodules of this size detected on abdominal CT. Please note that all CT scans at this facility use dose modulation, iterative reconstruction, and/or weight-based dosing when appropriate to reduce radiation dose to as low as reasonably achievable. Dictated by Yasmani Renteria MD @ 07/08/2024 6:32:04 PM (Electronic Signature) Discharge Plan Discharge Clinical Impression: Acute liver failure Patient Disposition: [facility]
[2024-07-08 15:51] LABS: Albumin* 3.3 g/dL (3.3-5.0); Chloride* 101 mmol/L (96-114); Sodium* 133 mmol/L (135-149)
[2024-07-08 15:53] LABS: Creatinine* 0.7 mg/dL (0.5-1.5); Est. Creatinine Clearance* 90.41; Estimated Glomerular Filt Rate 111 ml/min
[2024-07-08 15:54] LABS: Alanine Aminotransferase* 243 U/L (4-35); Alkaline Phosphatase* 825 U/L (40-150); Anion Gap 15 mEq/L (7-15); Aspartate Amino Transferase* 678 U/L (12-35); Bilirubin Direct* 8.2 mg/dL (0.0-0.5); Bilirubin Total* 9.3 mg/dL (0.1-1.5); Blood Urea Nitrogen* 9 mg/dL (5-24); Carbon Dioxide* 17 mmol/L (20-32); Glucose* 85 mg/dL (60-115); Total Protein* 7.1 g/dL (6.0-8.3)
[2024-07-08 15:55] LABS: Magnesium* 1.6 mg/dL (1.5-2.6)
[2024-07-08 15:58] LABS: Prothrombin Time 13.8 Seconds
[2024-07-08 15:59] LABS: Partial Thromboplastin Time* 31 Seconds (23-33)
[2024-07-08 16:01] LABS: Lipase* 336 U/L (23-300)
--- NOTE | 2024-07-08 16:29 | CRLHL7_ITS ---
For Patients: As a result of the Century Cures Act, medical imaging exams and procedure reports are released immediately into your electronic medical record. You may view this report before your referring provider. If you have questions, please contact your health care provider. INDICATION: Elevated bilirubin and liver function tests. Mildly elevated lipase. COMPARISON: Same day abdominal ultrasound TECHNIQUE: CT of the abdomen and pelvis with intravenous contrast (65 milliliters Isovue 370). FINDINGS: Lung bases: No pleural effusion. There are a few bibasilar pulmonary nodules largest of which is a solid 4 millimeter right lower lobe nodule on series 3, image 17. Liver: Low-attenuation of the liver compatible with hepatic steatosis. Mildly enlarged liver. No definite hepatic surface nodularity. No suspicious hepatic lesion is identified. Gallbladder and biliary tree: The gallbladder is decompressed. The gallbladder wall is diffusely thickened measuring up to 5 millimeters. No pericholecystic edema. Spleen: There are several punctate calcified granulomata scattered throughout the spleen. No splenomegaly. Pancreas: Normal. Adrenal glands: Normal. Kidneys and ureters: No hydroureteronephrosis. No suspicious renal lesions are identified. Bladder: Unremarkable CT appearance. Visualized reproductive organs: Fluid attenuation 21 millimeter right adnexal cyst/follicle. There is a tampon which has been placed in a horizontal orientation within the vaginal canal. Gastrointestinal tract: No focal abnormally dilated loops of bowel. There is prominent submucosal fatty deposition in the large bowel from the cecum to the splenic flexure. There is also mild submucosal fatty deposition in the terminal ileum and multiple other loops of predominantly right lower quadrant small bowel. Normal appendix. Peritoneal cavity: Trace pelvic free fluid. Lymph nodes: No enlarged abdominal or pelvic lymph nodes by CT size criteria. Vessels: No abdominal aortic aneurysm. Abdominal and pelvic wall: Normal. Bones: There are osseous degenerative changes. IMPRESSION: 1. Hepatic steatosis. Mild hepatomegaly. 2. The gallbladder wall is diffusely thickened, probably due to decompression. There is no pericholecystic edema. 3. Prominent submucosal fatty deposition in the large bowel and, to a lesser extent, the small bowel as described above. This finding can sometimes represent sequela of prior inflammation, but can also be seen as a normal variant. 4. Few bibasilar pulmonary nodules, the largest of which is a solid 4 millimeter right lower lobe nodule. No further imaging follow-up is recommended for incidental nodules of this size detected on abdominal CT. Please note that all CT scans at this facility use dose modulation, iterative reconstruction, and/or weight-based dosing when appropriate to reduce radiation dose to as low as reasonably achievable. Dictated by Yasmani Renteria MD @ 07/08/2024 6:32:04 PM (Electronically Signed)
[2024-07-08] MEDS: LORazepam 0.5 MG TABLET PO ×2 (17:05→21:40)
--- OUTSIDE RECORDS SUMMARY | 2024-07-08 17:22 | XMS_ITS | Clinical Summary ---
Author Organization [place] Address [address] [place] [id number] Care Team Providers Care Compliance And Control Analyst Name Role Phone [facility]- Primary Care Provider Allergies Active [...] on file Legal Sex Female 3:04 AM MISSILEMAN Gender Identity Not on file Sexual Orientation Not on file Last Filed Vital Signs Vital Sign Reading Time Taken Comments Blood Pressure 153/110 07/19/2019 11:38 AM MISSILEMAN Pulse 116 07/19/2019 11:38 AM MISSILEMAN Temperature 36.9 C (98.4 F) 07/19/2019 11:38 AM MISSILEMAN Respiratory Rate 18 07/19/2019 11:38 AM MISSILEMAN Oxygen Saturation 100% 07/19/2019 11:38 AM MISSILEMAN Inhaled Oxygen Concentration - - Weight 63.7 kg (140 lb 6.9 oz) 07/19/2019 11:41 AM MISSILEMAN Height 165.1 cm (5' 5) 07/19/2019 11:38 AM MISSILEMAN Body Mass Index 23.37 07/19/2019 11:38 AM MISSILEMAN Plan of Treatment Not on file Care Teams Compliance And Control Analyst Relationship Specialty Start Date End Date [facility]- [address] [place] [address] [facility] - General 07/19/19
--- OUTSIDE RECORDS SUMMARY | 2024-07-08 17:22 | XMS_ITS | Clinical Summary ---
Author Organization [facility] Address [place], [place] [address] Care Team Providers Care Financial Institution Branch Manager Name Role Phone Mayi Dickson MD Primary Care Provider [phone] Allergies Active Allergy Reactions Criticality Noted Date Comments Amoxicillin Rash 05/08/2016 Sulfa (Sulfonamide Antibiotics) Rash 04/18 Encounters Date Type Department Care Team Description 04/27/2024 Lab Requisition [facility] [phone] Rosaura Guevara MD from Last 3 Months [...] Comments Blood Pressure 151/93 05/08/2016 1:16 PM SUPERVISOR ENGINE ASSEMBLY Pulse 62 05/08/2016 1:17 PM SUPERVISOR ENGINE ASSEMBLY Temperature 36.4 C (97.6 F) 05/08/2016 11:00 AM SUPERVISOR ENGINE ASSEMBLY Respiratory Rate 16 05/08/2016 1:17 PM SUPERVISOR ENGINE ASSEMBLY Oxygen Saturation 98% 05/08/2016 1:17 PM SUPERVISOR ENGINE ASSEMBLY Inhaled Oxygen Concentration - - Weight 65.8 kg (145 lb) 05/08/2016 11:00 AM SUPERVISOR ENGINE ASSEMBLY Height 167.6 cm (5' 6) 05/08/2016 11:00 AM SUPERVISOR ENGINE ASSEMBLY Body Mass Index 23.4 05/08/2016 11:00 AM SUPERVISOR ENGINE ASSEMBLY Plan of Treatment Health Maintenance Due Date [...] TRACKING EVENT Routine 04/24/2024 4: 10 PM SUPERVISOR ENGINE ASSEMBLY PATH TISSUE EXAM Routine 04/24/2024 4:10 PM SUPERVISOR ENGINE ASSEMBLY HPV HIGH RISK Routine 09/27/2022 1:45 PM CDT from Last 3 Months or Most Recently Relevant to Health Maintenance Results * LAB TRACKING EVENT (04/24/2024 4:10 PM SUPERVISOR ENGINE ASSEMBLY) Other (Other) Client Collect / Unknown 04/24/2024 4:10 PM SUPERVISOR ENGINE ASSEMBLY 04/27/2024 1:47 PM SUPERVISOR ENGINE ASSEMBLY us Rosaura Guevara MD LAB BILL ONLY Final Re sult [facility] [address] [place] [address], * PATH TISSUE EXAM (04/24/2024 4:10 PM SUPERVISOR ENGINE ASSEMBLY) Case Report Pathology Report Case: [id number] Authorizing Provider: Rosaura Guevara MD Collected: 04/24/2024 1610 Ordering Location: [facility] Received: 04/27/2024 1504 Pathologist: Carleen Nickerson MD Specimen: Endometrial Biopsy 04/29/2024 10:52 AM SUPERVISOR ENGINE ASSEMBLY [facility] Final Diagnosis A) ENDOMETRIUM, BIOPSY: 1. Proliferative endometrium 2. Negative for chronic endometritis 3. Negative for hyperplasia, atypia, and malignancy 04/29/2024 10:52 AM SUPERVISOR ENGINE ASSEMBLY [facility] Clinical Information 43-year-old female with abnormal uterine bleeding. 04/29/2024 10:52 AM SUPERVISOR ENGINE ASSEMBLY [facility] Gross Description A) Received in formalin, labeled with the patient's name and date of , is a 2.3 x 1.5 x 0.4 cm aggregate of pink-varela mucosa admixed with clotted blood and mucous. The specimen is entirely submitted in one cassette. SJM 04/27/2024 04/29/2024 10:52 AM SUPERVISOR ENGINE ASSEMBLY [facility] Microscopic Description The final diagnosis is based on microscopic examination of appropriate sections of all specimens. 04/29/2024 10:52 AM SUPERVISOR ENGINE ASSEMBLY [facility] Additional Information Interpreted at [facility] - [address] [place] [address] [address], [place] [address] 04/29/2024 10:52 AM SUPERVISOR ENGINE ASSEMBLY [facility] Other (Endometrial Biopsy) 04/24/2024 4:10 PM SUPERVISOR ENGINE ASSEMBLY 04/27/2024 3:04 PM SUPERVISOR ENGINE ASSEMBLY Rosaura Guevara MD PATHOLOGY/CYTOLOGY Final Result [facility] [address] [place] [address], * HPV HIGH RISK (09/27/2022 1:45 PM CDT) TYPE 16 Negative Negative 10/03/2022 5:24 AM CDT [facility] TYPE 18 Negative Negative 10/03/2022 5:24 AM CDT [facility] OTHER HIGH RISK TYPES Negative Negative 10/03/2022 5:24 AM CDT [facility] Other (Cervical) 09/27/2022 1:45 PM CDT 10/01/2022 3:37 PM CDT Narrative [facility] - 10/03/2022 5:24 AM CDT HPV types 16, 18, 31, 33, 35, 39, 45, 51, 52, 56, 58, 59, 66 and 68 DNA were undetectable or below the pre-set threshold. Methodology: Ashwin Dwain 4800 HPV Test us Vanessa Foster PA-C MICROBIOLOGY Final Result [facility] [address] [place] [address], [place] from Last 3 Months or Most Recently Relevant to Health Maintenance Care Teams Financial Institution Branch Manager Relationship Specialty Start Date End Date Randolph, Mayi Muñoz MD [address] [place] [id number] PCP - General Obstetrics and Gynecology 05/08/16
--- OUTSIDE RECORDS SUMMARY | 2024-07-08 17:23 | XMS_ITS | Referral Summary ---
Author Organization [place] Address [address] [place] [address] Care Team Providers Care Clinical Care Leader Name Role Phone [facility]- Primary Care Provider Allergies Active Allergy Reactions Criticality Noted Date Comments Amoxicillin 07/19/2019 Sulfa Antibiotics 07/19/2019 Social History Tobacco Use Types Packs/Day Years Used Date Smoking Tobacco: Never Assessed Adolescent Education Answer Date Record ed Getting School Help Needed Not on file 03/23 Comments Unknown Sex and Gender Information Value Date Recorded Sex Assigned at Not on file Legal Sex Female 3:04 AM FUSING LINE INSPECTOR Gender Identity Not on file Sexual Orientation Not on file Last Filed Vital Signs Vital Sign Reading Time Taken Comments Blood Pressure 153/110 07/19/2019 11:38 AM FUSING LINE INSPECTOR Pulse 116 07/19/2019 11:38 AM FUSING LINE INSPECTOR Temperature 36.9 C (98.4 F) 07/19/2019 11:38 AM FUSING LINE INSPECTOR Respiratory Rate 18 07/19/2019 11:38 AM FUSING LINE INSPECTOR Oxygen Saturation 100% 07/19/2019 11:38 AM FUSING LINE INSPECTOR Inhaled Oxygen Concentration - - Weight 63.7 kg (140 lb 6.9 oz) 07/19/2019 11:41 AM FUSING LINE INSPECTOR Height 165.1 cm (5' 5) 07/19/2019 11:38 AM FUSING LINE INSPECTOR Body Mass Index 23.37 07/19/2019 11:38 AM FUSING LINE INSPECTOR Plan of Treatment Not on file Care Teams Clinical Care Leader Relationship Specialty Start Date End Date [facility]- [address] [place] [address] [facility] - General 07/19/19
[2024-07-08 17:55] LABS: Ammonia* 77.6 umol/L (13.1-30.0)
[2024-07-08] MEDS: LACTULOSE 20 GM/30 ML PO (20:59)
[2024-07-08 21:06] LABS: Ethanol* < 0.01 % (0.01-0.03)
[2024-07-08] MEDS: ONDANSETRON 2 MG/ML inj 4 MG IVP (21:25)
[2024-07-08] MEDS: ACETAMINOPHEN 500 MG TABLET PO (21:44)
[2024-07-09] VITALS (27 sets, daily range): BP systolic 115–130; BP diastolic 61–92; PULSE 71–95; RESP 16–18; O2SAT 91–100
[2024-07-09] MEDS: LORazepam 0.5 MG TABLET PO ×3 (01:47→17:46)
[2024-07-09 08:31] LABS: Basophils Percent Auto 0.3 % (0.0-3.0); Eosinophils Percent Auto 0.8 % (0.0-7.0); Hematocrit 27.2 % (33.0-51.0); Hemoglobin* 8.8 gm/dL (12.0-16.0); Immature Granulocytes Pct Auto 0.3 %; Lymphocytes Percent Auto 26.9 % (20-44); Mean Corpuscular HGB Conc 32 gm/dL (32-36); Mean Corpuscular Hemoglobin 32 pg (26-34); Mean Corpuscular Volume 98 fL (80-100); Monocytes Percent Auto 12.2 % (0.0-11.0); Neutrophils Percent Auto 59.5 % (42.0-72.0); Platelet Count* 179 K/uL (140-440); Red Blood Count 2.78 m/uL (4.00-5.20); White Blood Count* 3.68 K/uL (4.50-11.00)
[2024-07-09 08:48] LABS: Albumin* 2.7 g/dL (3.3-5.0); Chloride* 105 mmol/L (96-114); Potassium* 3.7 mmol/L (3.6-5.1); Slide Review Reflex No; Sodium* 135 mmol/L (135-149)
[2024-07-09 08:50] LABS: Creatinine* 0.8 mg/dL (0.5-1.5); Est. Creatinine Clearance* 79.11; Estimated Glomerular Filt Rate 94 ml/min
[2024-07-09 08:51] LABS: Alanine Aminotransferase* 202 U/L (4-35); Alkaline Phosphatase* 646 U/L (40-150); Anion Gap 5 mEq/L (7-15); Aspartate Amino Transferase* 562 U/L (12-35); Bilirubin Total* 9.3 mg/dL (0.1-1.5); Blood Urea Nitrogen* 7 mg/dL (5-24); Calcium* 8.4 mg/dL (8.4-10.6); Carbon Dioxide* 25 mmol/L (20-32); Glucose* 81 mg/dL (60-115); Lipase* 304 U/L (23-300)
[2024-07-09 08:52] LABS: Ammonia* 33.2 umol/L (13.1-30.0)
[2024-07-09] MEDS: LACTULOSE 20 GM/30 ML PO ×2 (09:38→22:03)
[2024-07-09] MEDS: ACETAMINOPHEN 325 MG TABLET 650 MG PO ×2 (12:12→21:40)
[2024-07-10] MEDS: LORazepam 0.5 MG TABLET PO ×2 (01:19→11:35)
[2024-07-10 01:20] VITALS: BP 130/92; PULSE 84; RESP 16; O2SAT 97
[2024-07-10 05:13] VITALS: BP 124/85; PULSE 69; RESP 16; O2SAT 96
[2024-07-10 07:57] VITALS: BP 135/85; PULSE 77; RESP 20; O2SAT 97
[2024-07-10 08:33] LABS: Basophils Percent Auto 0.2 % (0.0-3.0); Eosinophils Percent Auto 0.9 % (0.0-7.0); Hematocrit 28.8 % (33.0-51.0); Hemoglobin* 9.2 gm/dL (12.0-16.0); Immature Granulocytes Pct Auto 0.5 %; Lymphocytes Percent Auto 20.9 % (20-44); Mean Corpuscular HGB Conc 32 gm/dL (32-36); Mean Corpuscular Hemoglobin 32 pg (26-34); Mean Corpuscular Volume 100 fL (80-100); Monocytes Percent Auto 9.4 % (0.0-11.0); Neutrophils Percent Auto 68.1 % (42.0-72.0); Platelet Count* 179 K/uL (140-440); RDW Coefficient of Variation % 17.7 % (11.5-15.5); Red Blood Count 2.89 m/uL (4.00-5.20); White Blood Count* 4.26 K/uL (4.50-11.00)
[2024-07-10 08:35] LABS: Slide Review Reflex No
[2024-07-10 08:48] LABS: Albumin* 2.9 g/dL (3.3-5.0)
[2024-07-10 08:49] LABS: Chloride* 104 mmol/L (96-114); Potassium* 3.6 mmol/L (3.6-5.1); Sodium* 136 mmol/L (135-149)
[2024-07-10 08:51] LABS: Anion Gap 5 mEq/L (7-15); Aspartate Amino Transferase* 533 U/L (12-35); Bilirubin Direct* 8.8 mg/dL (0.0-0.5); Blood Urea Nitrogen* 5 mg/dL (5-24); Carbon Dioxide* 27 mmol/L (20-32); Creatinine* 0.8 mg/dL (0.5-1.5); Est. Creatinine Clearance* 79.11; Estimated Glomerular Filt Rate 94 ml/min; Total Protein* 6.4 g/dL (6.0-8.3)
[2024-07-10 08:52] LABS: Alanine Aminotransferase* 205 U/L (4-35); Alkaline Phosphatase* 741 U/L (40-150); Ammonia* 29.9 umol/L (13.1-30.0); Calcium* 8.6 mg/dL (8.4-10.6); Glucose* 87 mg/dL (60-115)
[2024-07-10 10:27] VITALS: BP 133/86; PULSE 88; RESP 16; O2SAT 99
[2024-07-10] MEDS: LACTULOSE 20 GM/30 ML PO (11:08)
[2024-07-10 13:12] VITALS: BP 129/87; PULSE 105; RESP 20; O2SAT 97
== END 2024-07-10 14:56 | disposition short-term general hospital (02) ==
PROVIDERS: Family Medicine; Emergency Provider Student in an Organized Health Care Education/Training Program; PCP Physician Assistant Medical
DX: K72.90 Hepatic failure, unspecified without coma (principal)
CPT/HCPCS: 36415; 74177; 76700; 80053; 82077; 82140; 82248; 83690; 83735; 85025; 85610; 85730; 96374; 99285; A9270; J2405; Q9967

== ENCOUNTER 2024-07-27 17:33 | Outpatient (CLI) | payer BC, SELFPAY | END 2024-07-27 17:34 | disposition home or self-care (01) | LOC: LKVREF 17:35 | PROVIDERS: PCP Physician Assistant Medical; Visit Provider Physician Assistant Medical | DX: K75.9 Inflammatory liver disease, unspecified (principal) | CPT/HCPCS: 80053 ==

== ENCOUNTER 2024-08-21 16:25 | Outpatient (CLI) | payer BC, SELFPAY | END 2024-08-21 16:26 | disposition home or self-care (01) | LOC: NFLDREF 08-25 06:30 | PROVIDERS: PCP Physician Assistant Medical; Referring Provider Physician Assistant Medical; Visit Provider Physician Assistant Medical | DX: E61.1 Iron deficiency (principal); E53.8 Deficiency of other specified B group vitamins; D64.9 Anemia, unspecified; R60.0 Localized edema | CPT/HCPCS: 80053; 82607; 82746; 83540; 83550; 84425 ==

== ENCOUNTER 2024-10-02 11:39 | Outpatient (CLI) | payer BC, SELFPAY | END 2024-10-02 11:40 | disposition home or self-care (01) | LOC: NFLDREF 10-06 18:22 | PROVIDERS: PCP Physician Assistant Medical; Referring Provider Physician Assistant Medical; Visit Provider Physician Assistant Medical | DX: K75.9 Inflammatory liver disease, unspecified (principal); E83.19 Other disorders of iron metabolism | CPT/HCPCS: 80076; 82728 ==

== ENCOUNTER 2025-05-19 08:20 | Outpatient (CLI) | payer BC, SELFPAY | END 2025-05-19 08:21 | disposition home or self-care (01) | LOC: NFLDREF 05-20 15:31 | PROVIDERS: PCP Physician Assistant Medical; Referring Provider Physician Assistant Medical; Visit Provider Physician Assistant Medical | DX: N39.0 Urinary tract infection, site not specified (principal) | CPT/HCPCS: 87086 ==

== ENCOUNTER 2025-05-27 15:50 | Outpatient (CLI) | payer BC, SELFPAY ==
[2025-05-27 23:18] LABS: Chlamydia DNA Amplified* NOT DETECTED (No Detected); GC DNA Amplified* NOT DETECTED (No Detected)
== END 2025-05-27 15:51 | disposition home or self-care (01) ==
PROVIDERS: PCP Physician Assistant Medical; Visit Provider Physician Assistant Medical
DX: I10 Essential (primary) hypertension (principal); N95.1 Menopausal and female climacteric states
CPT/HCPCS: 80053; 82306; 82607; 82670; 82728; 84144; 87491; 87591